=== PATIENT | female | born 1945 | race Caucasian/White ===

== ENCOUNTER 2023-02-10 05:56 | Day surgery (SDC) | payer MEDICARE, BC ==
[2023-02-09 09:31] VITALS: BMI 36.5
[2023-02-10] MEDS ORDERED: Bupivacaine PF 0.5% 30 ML VIAL ONE (06:05)
[2023-02-10] MEDS ORDERED: Ondansetron PF 4 MG/2 ML Vial ONE (06:33)
[2023-02-10] MEDS ORDERED: Lidocaine 1% PF 5 ML VIAL ONE (06:33)
[2023-02-10] MEDS ORDERED: PROPOFOL 20 ML ONE (06:33)
[2023-02-10] MEDS ORDERED: fentaNYL 50 mcg/mL 1 mL Vial ONE (07:08)
[2023-02-10] MEDS ORDERED: CEFAZOLIN 1 GM VIAL ONE (07:08)
[2023-02-10] MEDS ORDERED: diphenhydrAMINE 50 MG/ML VIAL ONE (07:13)
[2023-02-10] MEDS ORDERED: ePHEDrine Sulfate 50 MG/10 ML VIAL ONE (07:17)
[2023-02-10] MEDS ORDERED: Acetaminophen 325 MG TAB PO PRN (07:49)
== END 2023-02-10 08:50 | disposition home or self-care (01) ==
LOC: CSHSDC 05:56
PROVIDERS: ATTEND Surgery
PROC: 0JH63WZ Insertion of Totally Implantable Vascular Access Device into Chest Subcutaneous Tissue and Fascia, Percutaneous Approach (ICD-10-PCS; principal; 2023-02-10)
DX: C79.31 Secondary malignant neoplasm of brain (principal); C78.00 Secondary malignant neoplasm of unspecified lung; I87.2 Venous insufficiency (chronic) (peripheral); E78.00 Pure hypercholesterolemia, unspecified; M81.0 Age-related osteoporosis without current pathological fracture; E11.9 Type 2 diabetes mellitus without complications; Z88.5 Allergy status to narcotic agent; Z88.8 Allergy status to other drugs, medicaments and biological substances; Z79.82 Long term (current) use of aspirin; Z79.02 Long term (current) use of antithrombotics/antiplatelets; Z99.81 Dependence on supplemental oxygen; Z90.49 Acquired absence of other specified parts of digestive tract; Z96.649 Presence of unspecified artificial hip joint; Z90.89 Acquired absence of other organs; Z79.84 Long term (current) use of oral hypoglycemic drugs; Z79.899 Other long term (current) drug therapy
CPT/HCPCS: 36561; 71045; J3010; 36416; 80053; 84439; 84443; C1788; J0690; J1200; J1642; J2405; J2704; S0020